=== PATIENT | female | born 1995 | race Caucasian/White ===

== ENCOUNTER 2017-03-31 16:56 | Inpatient (IN) | payer BC ==
[~2017-03-31] VITALS: Ht 160 cm; Wt 65.8 kg
[2017-03-31 17:15] VITALS: BP 111/90
--- NOTE | 2017-03-31 17:29 | Emergency Room Report ---
History of Present Illness General Chief Complaint: Abdominal Pain Source: Patient (Ed Stephen M.D.) Present Illness HPI The patient presents with abdominal pain that's been intermittent for 7-10 days. It's more in the periumbilical area and sometimes radiates up to the left upper quadrant. The pain was severe last night at 8./10. She was given Zofran and Bentyl at urgent care. That hasn't helped. She took Tylenol initially and this was unable to control pain. She denies having fevers. She's been vomiting bile recently. She's had loose stools which are brown in color. In September she passed out was evaluated at [facility]. EKG and what sounds like an MRI were done. She was told nothing was wrong. She still has intermittent dizziness. A month after being evaluated there she passed some blood in her stool. She has a picture which looks hemorrhoidal BRB. She has an implant. No URI sy, cough, dyspnea. No rashes. She's had some depression. (Ed Stephen M.D.) Allergies: Coded Allergies: No Known Allergies (Unverified , 03/31/17) Patient History Past Medical History: see triage record Pertinent Family History: other - Crohn's Social History: Reports: smoking Social History Narrative brought by [email or web address] Last Menstrual Period: 03/31/17 Now: No Reviewed Nursing Documentation: PMH: Agreed, PSxH: Agreed (Ed Stephen M.D.) Review of Systems All Other Systems: negative except mentioned in HPI (Ed Stephen M.D.) Physical Exam Vital Signs Date Time Temp Pulse Resp B/P (MAP) Pulse Ox O2 Delivery O2 Flow Rate FiO2 03/31/17 17:04 99.1 74 15 102/66 100 Sp02 EP Interpretation: reviewed, normal General Appearance: well appearing, no apparent distress, GCS 15 Head: normocephalic Eyes: bilateral eye normal inspection, bilateral eye PERRL ENT: moist mucus membranes Neck: supple Respiratory: lungs clear, normal breath sounds Cardiovascular #1: regular rate, rhythm Cardiovascular #2: 2+ radial (R) Gastrointestinal: normal inspection, normal bowel sounds, no mass, non- distended, no guarding, no rebound, tenderness - RLQ, some periumbilical pain, scaphoid Musculoskeletal: back normal, gait/station normal, normal range of motion Neurologic: alert, oriented x3, grossly normal Psychiatric: mood/affect normal Skin: normal inspection, warm/dry (Ed Stephen M.D.) Medical Decision Making Diagnostic Impression: Primary Impression: Abdominal pain Qualified Codes: R10.84 - Generalized abdominal pain Additional Impression: Acalculous cholecystitis ER Course The patient presents with abdominal pain for 7-10 days. We're her exam is most tender is the right lower quadrant. Differential includes appendicitis, ovarian torsion, ovarian cyst amongst others. Evaluation will be with labs appear to be treated IV hydration Zofran and Toradol. This does not control the pain morphine will be used. In addition to that a CT of the abdomen with by mouth and IV contrast will be obtained. In addition to that because of the possibility of ovarian pathology on pelvic ultrasound will be obtained. Ultrasound without ovarian pathology. Awaiting CT. Still with pain after fentanyl 75 mg. Will give dilaudid. Improved after dilaudid. Discussed consideration for colitis. Signed out to Dr. Gupta for review of CT. Laboratory Tests Test 03/31/17 17:20 03/31/17 17:30 Urine Color Pale yellow Urine Appearance Clear Urine pH 6.5 (4.5-8.0) Urine Specific Anderson 1.010 (1.005-1.035) Urine Protein Negative (NEGATIVE) Urine Glucose (UA) Negative (NEGATIVE) Urine Ketones Negative (NEGATIVE) Urine Occult Blood 1+ (NEGATIVE) H Urine Nitrite Negative (NEGATIVE) Urine Bilirubin Negative (NEGATIVE) Urine Urobilinogen Normal MG/DL (0.0-1.0) Urine Leukocyte Esterase Negative (NEGATIVE) Urine RBC 0-2 /HPF (0 - 2) Urine WBC 0-2 /HPF (0 - 2) Urine Squamous Epithelial Cells Occasional /LPF Urine Bacteria Occasional /HPF (NONE) Urine HCG, Qualitative Negative White Blood Count 8.9 K/UL (4.8-10.8) Red Blood Count 4.42 M/UL (4.20-5.40) Hemoglobin 14.3 G/DL (12.0-16.0) Hematocrit 40.3 % (37.0-47.0) Mean Corpuscular Volume 91 FL (80-99) Mean Corpuscular Hemoglobin 32.2 PG (27.0-31.0) H Mean Corpuscular Hemoglobin Concent 35.4 G/DL (32.0-36.0) Red Cell Distribution Width 11.0 % (11.6-14.8) L Platelet Count 238 K/UL (150-450) Mean Platelet Volume 8.3 FL (6.5-10.1) Neutrophils (%) (Auto) 58.0 % (45.0-75.0) Lymphocytes (%) (Auto) 35.3 % (20.0-45.0) Monocytes (%) (Auto) 4.8 % (1.0-10.0) Eosinophils (%) (Auto) 0.6 % (0.0-3.0) Basophils (%) (Auto) 1.3 % (0.0-2.0) Sodium Level 138 mEQ/L (135-145) Potassium Level 4.2 mEQ/L (3.4-4.9) Chloride Level 100 mEQ/L (98-107) Carbon Dioxide Level 26 mEQ/L (20-30) Anion Gap 12 (5-15) Blood Urea Nitrogen 9 mg/dL (7-23) Creatinine 0.9 mg/dL (0.5-0.9) Estimate Glomerular Filtration Rate > 60 mL/min (>60) Glucose Level 85 mg/dL (74-106) Calcium Level 9.5 mg/dL (8.6-10.2) Total Bilirubin 0.3 mg/dL (0.0-1.2) Aspartate Amino Transferase (AST) 13 U/L (5-40) Alanine Aminotransferase (ALT) 9 U/L (3-33) Alkaline Phosphatase 98 U/L (35-104) Total Protein 7.7 g/dL (6.6-8.7) Albumin 5.1 g/dL (3.5-5.2) Globulin 2.6 g/dL Albumin/Globulin Ratio 1.9 (1.0-2.7) Lipase 18 U/L (< 60) (Ed Stephen M.D.) ER Course Patient was endorsed to me by Dr. Stephen. The patient was pending CT evaluation which was performed at [facility]. The CT was notable for gallbladder without evidence of calcified gallstones or significant wall thickening however there was paracholecystic fluid. There is nonspecific periportal edema and pancreas is unremarkable. There is no evidence of bowel obstruction. The patient was noted to have have been on her menses.Dr. Luiz Lakhani was contacted for inpatient management. Dr. Rojas was contacted for surgical consultation. Labs Test 03/31/17 17:20 03/31/17 17:30 Urine Color Pale yellow Urine Appearance Clear Urine pH 6.5 (4.5-8.0) Urine Specific Anderson 1.010 (1.005-1.035) Urine Protein Negative (NEGATIVE) Urine Glucose (UA) Negative (NEGATIVE) Urine Ketones Negative (NEGATIVE) Urine Occult Blood 1+ (NEGATIVE) Urine Nitrite Negative (NEGATIVE) Urine Bilirubin Negative (NEGATIVE) Urine Urobilinogen Normal MG/DL (0.0-1.0) Urine Leukocyte Esterase Negative (NEGATIVE) Urine RBC 0-2 /HPF (0 - 2) Urine WBC 0-2 /HPF (0 - 2) Urine Squamous Epithelial Cells Occasional /LPF Urine Bacteria Occasional /HPF (NONE) Urine HCG, Qualitative Negative White Blood Count 8.9 K/UL (4.8-10.8) Red Blood Count 4.42 M/UL (4.20-5.40) Hemoglobin 14.3 G/DL (12.0-16.0) Hematocrit 40.3 % (37.0-47.0) Mean Corpuscular Volume 91 FL (80-99) Mean Corpuscular Hemoglobin 32.2 PG (27.0-31.0) Mean Corpuscular Hemoglobin Concent 35.4 G/DL (32.0-36.0) Red Cell Distribution Width 11.0 % (11.6-14.8) Platelet Count 238 K/UL (150-450) Mean Platelet Volume 8.3 FL (6.5-10.1) Neutrophils (%) (Auto) 58.0 % (45.0-75.0) Lymphocytes (%) (Auto) 35.3 % (20.0-45.0) Monocytes (%) (Auto) 4.8 % (1.0-10.0) Eosinophils (%) (Auto) 0.6 % (0.0-3.0) Basophils (%) (Auto) 1.3 % (0.0-2.0) Sodium Level 138 mEQ/L (135-145) Potassium Level 4.2 mEQ/L (3.4-4.9) Chloride Level 100 mEQ/L (98-107) Carbon Dioxide Level 26 mEQ/L (20-30) Anion Gap 12 (5-15) Blood Urea Nitrogen 9 mg/dL (7-23) Creatinine 0.9 mg/dL (0.5-0.9) Estimat Glomerular Filtration Rate > 60 mL/min (>60) Glucose Level 85 mg/dL (74-106) Calcium Level 9.5 mg/dL (8.6-10.2) Total Bilirubin 0.3 mg/dL (0.0-1.2) Aspartate Amino Transf (AST/SGOT) 13 U/L (5-40) Alanine Aminotransferase (ALT/SGPT) 9 U/L (3-33) Alkaline Phosphatase 98 U/L (35-104) Total Protein 7.7 g/dL (6.6-8.7) Albumin 5.1 g/dL (3.5-5.2) Globulin 2.6 g/dL Albumin/Globulin Ratio 1.9 (1.0-2.7) Lipase 18 U/L (< 60) (Jamil Gupta) Status: improved (Ed Stephen M.D.) Status: unchanged (Jamil Gupta) Disposition: ADMITTED INPATIENT Condition: Serious Ed Stephen M.D. Mar 31, 2017 17:29 Jamil Gupta Apr 01, 2017 02:10
[2017-03-31] MEDS ORDERED: Ketorolac 30mg Inj IV ONE (17:30)
[2017-03-31 18:06] LABS: BASOPHILS % (AUTO) 1.3 % (0.0-2.0); EOSINOPHILS % (AUTO) 0.6 % (0.0-3.0); LYMPHOCYTES % (AUTO) 35.3 % (20.0-45.0); MEAN CORPUSCULAR HEMOGLOBIN 32.2 PG (27.0-31.0); MEAN CORPUSCULAR HGB CONC 35.4 G/DL (32.0-36.0); MEAN CORPUSCULAR VOLUME 91 FL (80-99); MEAN PLATELET VOLUME 8.3 FL (6.5-10.1); MONOCYTES % (AUTO) 4.8 % (1.0-10.0); PLATELET COUNT 238 K/UL (150-450); RED BLOOD COUNT 4.42 M/UL (4.20-5.40); WHITE BLOOD COUNT 8.9 K/UL (4.8-10.8)
[2017-03-31 18:08] LABS: ALANINE AMINOTRANSFERASE 9 U/L (3-33); ALBUMIN/GLOBULIN RATIO 1.9 (1.0-2.7); ANION GAP 12 (5-15); ASPARTATE AMINO TRANSFERASE 13 U/L (5-40); CALCIUM 9.5 mg/dL (8.6-10.2); CARBON DIOXIDE 26 mEQ/L (20-30); CHLORIDE 100 mEQ/L (98-107); CREATININE 0.9 mg/dL (0.5-0.9); GLOMERULAR FILTRATION RATE > 60 mL/min (>60); HEMOLYSIS 6; LIPASE 18 U/L (< 60); POTASSIUM 4.2 mEQ/L (3.4-4.9); SODIUM 138 mEQ/L (135-145); TOTAL PROTEIN 7.7 g/dL (6.6-8.7)
[2017-03-31 18:08] LABS: APPEARANCE,URINE CLEAR; KETONES,URINE NEGATIVE (NEGATIVE); LEUKOCYTE ESTERASE ,URINE NEGATIVE (NEGATIVE); NITRITE,URINE NEGATIVE (NEGATIVE); PH,URINE 6.5 (4.5-8.0); PROTEIN,URINE NEGATIVE (NEGATIVE); UROBILINOGEN,URINE NORMAL MG/DL (0.0-1.0)
[2017-03-31 18:17] LABS: RBC,URINE 0-2 /HPF (0 - 2); WBC,URINE 0-2 /HPF (0 - 2)
[2017-03-31 18:18] LABS: BACTERIA,URINE OCCASIONAL /HPF; SQUAMOUS EPITHELIAL CELL,UR OCCASIONAL /LPF (NONE/OCC)
[2017-03-31] MEDS ORDERED: fentaNYL 100 mcg/2 mL IV ONE ×2 (19:00→20:45)
[2017-03-31 19:30] VITALS: BP 101/72
[2017-03-31] MEDS ORDERED: Hydromorphone 0.5mg/0.5ml inj IVP ONE (22:15)
[2017-03-31] MEDS ORDERED: TRAMADOL HCL50 MG ORAL (22:42)
[2017-04-01] MEDS ORDERED: Dicyclomine HCl 10mg/5ml oral soln ORAL ONE (01:30)
[2017-04-01] MEDS ORDERED: D5 1/2NS w/KCl 20mEq 1,000 ML IV SCH (02:15)
[2017-04-01] MEDS ORDERED: Ampicillin/Sulbactam Sod 3 GM in NS 110 ML IVPB ONE (02:15)
[2017-04-01 02:20] VITALS: BP 100/65
[2017-04-01] MEDS ORDERED: Unasyn 3gm Inj ONE (02:26)
[2017-04-01] MEDS ORDERED: BUPROPION XL300 MG ORAL (03:40)
[2017-04-01] MEDS ORDERED: ATARAX25 MG ORAL (03:40)
[2017-04-01] MEDS ORDERED: Mylanta II UD 30ml ORAL PRN (03:45)
[2017-04-01] MEDS ORDERED: Morphine Sulfate 4mg/ml Inj IVP PRN (03:45)
[2017-04-01] MEDS ORDERED: Milk of Magnesia 30ml Ud ORAL PRN (03:45)
[2017-04-01] MEDS ORDERED: Zolpidem 5mg tab ORAL PRN (03:45)
[2017-04-01 04:00] VITALS: BP 101/54
[2017-04-01 04:01] LABS: INR 1.2 (0.9-1.1); PROTHROMBIN TIME 11.9 SEC (9.30-11.50)
[2017-04-01] MEDS: D5 1/2NS 1,000 ML IV SCH ×3 (04:37→21:01)
[2017-04-01 08:00] VITALS: BP 95/49
[2017-04-01] MEDS: Piperacillin/Tazobactam 3.375 GM in D5W 110 ML IVPB SCH ×3 (09:50→22:57)
[2017-04-01 12:00] VITALS: BP 91/51
[2017-04-01] MEDS: Morphine Sulfate 2mg/ml Inj IVP PRN ×2 (12:43→18:33)
--- NOTE | 2017-04-01 13:00 | History & Physical ---
History and Physical History & Physicial HP dictated # [id number] NERIS GEORGE Apr 01, 2017 13:00
[2017-04-01 16:00] VITALS: BP 93/51
[2017-04-01] MEDS ORDERED: D5 1/2NS 1000ml IV ONE (18:18)
[2017-04-01 20:00] VITALS: BP 102/65
[2017-04-01] MEDS: Hydromorphone 0.5mg/0.5ml inj IVP PRN (22:00)
[2017-04-02] VITALS: BP 92/55
--- NOTE | 2017-04-02 01:00 | Consultation ---
DATE OF CONSULTATION: 04/01/2017 CONSULTING PHYSICIAN: Bull Rojas M.D. ATTENDING PHYSICIAN: Luiz Lakhani M.D. REQUESTING PHYSICIAN: Luiz Lakhani M.D. REASON FOR CONSULTATION: Abdominal pain. HISTORY OF PRESENT ILLNESS: This is a 21-year-old female who presented to emergency room complaining of abdominal pain for about a week. The pain is located at the lower abdomen with radiation to the right upper quadrant. This pain has been associated with mild nausea. She claims that she has vomited once. She stated that she has been having diarrhea, which is watery and loose, but no mucus or blood, but she claimed that she has not had any bowel movement for 2 to 3 days. The pain apparently is steady and gets aggravated with bowel movement, eating, and standing. She denies any previous history. She denies any fever, cough, dysuria, or frequency. Her period has started today. She denies any dyspareunia or vaginal discharge. PAST MEDICAL HISTORY: She denies allergies, asthma, diabetes, hypertension, cardiac or renal diseases. PAST SURGICAL HISTORY: T and A, and rhinoplasty. MEDICATIONS: None. 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 REVIEW OF SYSTEMS: Noncontributory. PHYSICAL EXAMINATION: GENERAL: The patient appeared to be a well-developed, well-nourished, 21-year-old female, in no acute distress, lying on the bed complaining of abdominal pain. HEENT: Head is normocephalic and atraumatic. Eyes, pupils are equal, round, and reactive to light. Mouth is clear. NECK: There is no palpable thyromegaly or adenopathy. CHEST: Clear to auscultation and percussion. HEART: There is no gallop or murmur. S1 and S2 are within normal limits. ABDOMEN: Soft and flat with tenderness allover, which seems to be more pronounced at the lower abdomen, mainly on the right lower quadrant, may be even on the right upper quadrant. There is no palpable organomegaly. Bowel sounds are audible. GENITAL: She is free of hernia. EXTREMITIES: Within normal limits. LABORATORY AND DIAGNOSTIC DATA: CBC is absolutely normal. Chemistry is absolutely normal. Urine is normal. CAT scan of the abdomen, I do not have the report, but she has had a CAT scan and the emergency room physician quoted me that there was edema at the area of the gallbladder, but no stone. ASSESSMENT: Abdominal pain, etiology unknown. RECOMMENDATION: At this time, she requires an ultrasound of the abdomen and a GI consultation. Bull Rojas M.D. DR: Keli JOB#: [id number] CC:
[2017-04-02] MEDS: Hydromorphone 0.5mg/0.5ml inj IVP PRN ×2 (01:16→08:46)
--- NOTE | 2017-04-02 03:30 | History and Physical Report ---
DATE OF ADMISSION: 04/01/2017 CHIEF COMPLAINT: Abdominal pain. HISTORY OF PRESENT ILLNESS: This is a pleasant 21-year-old white female, who was in her usual state of health about a week ago when she started having abdominal pain. This has been waxing and waning, however yesterday, the pain was very severe so she came to the emergency room. She describes the pain as diffuse. It is not related to eating. She noticed some blood a couple of months ago in the stool, but she had not noticed any now. Also, she states that her stools have been loose, although not watery. She had also been vomiting. PAST MEDICAL HISTORY: No previous history of GI problems. Reportedly, there is history of syncope with negative workup. She has had intermittent dizziness. SOCIAL HISTORY: The patient has history of smoking, but no history of alcohol abuse. 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 ALLERGIES: No known drug allergy. REVIEW OF SYSTEMS: As above. PHYSICAL EXAMINATION: GENERAL: The patient is a thin female, in no acute distress. VITAL SIGNS: Blood pressure is 91/51, pulse 57, temperature 97.3, and respiratory rate 20. HEENT: Nebo conjunctivae. Anicteric sclerae. NECK: Supple. LUNGS: Clear to auscultation. HEART: S1 and S2 without murmurs or rubs. Abdomen is diffusely tender. EXTREMITIES: No cyanosis or edema. LABORATORY FINDINGS: CBC shows a WBC of 8.9, hematocrit 40.3, hemoglobin 14.3, and platelets 238,000. Chemistry panel shows a serum sodium of 138, potassium 4.2, chloride 100, BUN 9, creatinine 0.9, and albumin 5.1. UA is negative. ASSESSMENT: This is a 21-year-old female, who is admitted with nausea, vomiting, some loose stools, and severe abdominal pain. She had a CT scan, which showed no evidence of calcific gallstones or wall thickening; however, there was pericholecystic fluid, there was nonspecific portal edema, and the pancreas was unremarkable. It is doubtful that the patient has acute cholecystitis because the symptoms do not match with the CAT scan results. It appears the patient has gastroenteritis, either infectious cause or possibly inflammatory bowel disease. PLAN: The patient will be on pain medications, clear liquid diet, and IV fluids. Gastrointestinal consultation was obtained. The patient was seen by Dr. Rojas in surgical consultation and does not appear to have a surgical abdomen. The patient will likely need to have colonoscopy to rule out inflammatory bowel disease. Luiz Lakhani M.D. DR: Donna JOB#: [id number] CC:
[2017-04-02 04:00] VITALS: BP 117/56
[2017-04-02] MEDS: D5 1/2NS 1,000 ML IV SCH ×3 (04:31→20:31)
[2017-04-02 07:18] LABS: BASOPHILS % (AUTO) 1.7 % (0.0-2.0); EOSINOPHILS % (AUTO) 2.2 % (0.0-3.0); LYMPHOCYTES % (AUTO) 43.1 % (20.0-45.0); MEAN CORPUSCULAR HEMOGLOBIN 33.4 PG (27.0-31.0); MEAN CORPUSCULAR HGB CONC 35.7 G/DL (32.0-36.0); MEAN CORPUSCULAR VOLUME 93 FL (80-99); MEAN PLATELET VOLUME 8.8 FL (6.5-10.1); MONOCYTES % (AUTO) 7.3 % (1.0-10.0); NEUTROPHILS % (AUTO) 45.8 % (45.0-75.0); PLATELET COUNT 179 K/UL (150-450); RED BLOOD COUNT 3.66 M/UL (4.20-5.40); RED CELL DISTRIBUTION WIDTH 10.8 % (11.6-14.8); WHITE BLOOD COUNT 6.1 K/UL (4.8-10.8)
[2017-04-02 07:23] LABS: ALANINE AMINOTRANSFERASE 7 U/L (3-33); ANION GAP 9 (5-15); ASPARTATE AMINO TRANSFERASE 10 U/L (5-40); CALCIUM 8.9 mg/dL (8.6-10.2); CARBON DIOXIDE 26 mEQ/L (20-30); CHLORIDE 107 mEQ/L (98-107); CHOLESTEROL 126 mg/dL (< 200); CHOLESTEROL/HDL RATIO 3.3 (3.3-4.4); CREATININE 0.9 mg/dL (0.5-0.9); GLOMERULAR FILTRATION RATE > 60 mL/min (>60); HEMOLYSIS 7; LDL CHOLESTEROL (CALC.) 75 mg/dL (60-99); POTASSIUM 3.9 mEQ/L (3.4-4.9); SODIUM 142 mEQ/L (135-145)
[2017-04-02 07:47] LABS: HEMOGLOBIN A1C 4.7 % (< 6.0)
[2017-04-02 08:15] VITALS: BP 109/64
[2017-04-02] MEDS: Piperacillin/Tazobactam 3.375 GM in D5W 110 ML IVPB SCH ×2 (08:46→17:28)
[2017-04-02] MEDS ORDERED: Tubing IV Secondary IV ONE (10:19)
[2017-04-02] MEDS ORDERED: D5 1/2NS 1000ml IV ONE (10:19)
--- NOTE | 2017-04-02 11:51 | General Progress Note ---
Assessment/Plan Assessment/Plan Assessment - N/V, Diarrhea and abd pain x 1 week - Chronic diarrhea - FH of IBD Rec - stool cultures - EGD/Colon Tues - check blood tests Subjective Allergies: Coded Allergies: No Known Allergies (Unverified , 03/31/17) Objective Last 24 Hour Vital Signs Date Time Temp Pulse Resp B/P (MAP) Pulse Ox O2 Delivery O2 Flow Rate FiO2 04/02/17 08:15 98.6 78 22 109/64 97 Room Air 04/02/17 04:00 97.9 60 20 117/56 99 Room Air 04/02/17 01:46 97.1 04/02/17 00:00 97.1 60 18 92/55 98 Room Air 04/01/17 20:36 98.1 04/01/17 20:00 98.1 65 18 102/65 97 Room Air 04/01/17 16:00 97.3 62 20 93/51 99 Room Air 04/01/17 12:00 97.3 57 20 91/51 98 Room Air Intake and Output 04/02/17 04/03/17 19:00 07:00 # Bowel Movements 1 Laboratory Tests 04/02/17 06:30: White Blood Count 6.1, Red Blood Count 3.66L, Hemoglobin 12.2, Hematocrit 34.2L , Mean Corpuscular Volume 93, Mean Corpuscular Hemoglobin 33.4H, Mean Corpuscular Hemoglobin Concent 35.7, Red Cell Distribution Width 10.8L, Platelet Count 179, Mean Platelet Volume 8.8, Neutrophils (%) (Auto) 45.8, Lymphocytes (%) (Auto) 43.1, Monocytes (%) (Auto) 7.3, Eosinophils (%) (Auto) 2.2, Basophils (%) (Auto) 1.7, Sodium Level 142, Potassium Level 3.9, Chloride Level 107, Carbon Dioxide Level 26, Anion Gap 9, Blood Urea Nitrogen 3L, Creatinine 0.9, Estimat Glomerular Filtration Rate > 60, Glucose Level 95, Hemoglobin A1c 4.7, Calcium Level 8.9, Magnesium Level 2.0, Total Bilirubin 0.4 , Aspartate Amino Transf (AST/SGOT) 10, Alanine Aminotransferase (ALT/SGPT) 7, Alkaline Phosphatase 66, Total Protein 6.0L, Albumin 4.0, Globulin 2.0, Albumin/ Globulin Ratio 2.0, Triglycerides Level 65, Cholesterol Level 126, LDL Cholesterol 75, HDL Cholesterol 38, Cholesterol/HDL Ratio 3.3 Height (Feet): 5 Height (Inches): 4.00 Weight (Pounds): 145 SINA MELENDREZ Apr 02, 2017 11:51
[2017-04-02] MEDS: HYDROmorphone 1mg/ml Carpuject IVP PRN (11:57)
[2017-04-02 12:15] VITALS: BP 117/67
--- NOTE | 2017-04-02 12:36 | General Progress Note ---
Assessment/Plan Problem List: (1) Abdominal pain ICD Codes: R10.9 - Unspecified abdominal pain SNOMED: 03603829 Qualifiers: Qualified Codes: R10.84 - Generalized abdominal pain (2) Acute gastroenteritis ICD Codes: K52.9 - Noninfective gastroenteritis and colitis, unspecified SNOMED: 05596632 Assessment/Plan IVF liquid diet Pain meds Await endoscopy Subjective Allergies: Coded Allergies: No Known Allergies (Unverified , 03/31/17) Subjective Better with pain meds Objective Last 24 Hour Vital Signs Date Time Temp Pulse Resp B/P (MAP) Pulse Ox O2 Delivery O2 Flow Rate FiO2 04/02/17 12:15 97.9 76 21 117/67 95 Room Air 04/02/17 08:15 98.6 78 22 109/64 97 Room Air 04/02/17 04:00 97.9 60 20 117/56 99 Room Air 04/02/17 01:46 97.1 04/02/17 00:00 97.1 60 18 92/55 98 Room Air 04/01/17 20:36 98.1 04/01/17 20:00 98.1 65 18 102/65 97 Room Air 04/01/17 16:00 97.3 62 20 93/51 99 Room Air Intake and Output 04/02/17 04/03/17 19:00 07:00 # Bowel Movements 1 Laboratory Tests 04/02/17 06:30: White Blood Count 6.1, Red Blood Count 3.66L, Hemoglobin 12.2, Hematocrit 34.2L , Mean Corpuscular Volume 93, Mean Corpuscular Hemoglobin 33.4H, Mean Corpuscular Hemoglobin Concent 35.7, Red Cell Distribution Width 10.8L, Platelet Count 179, Mean Platelet Volume 8.8, Neutrophils (%) (Auto) 45.8, Lymphocytes (%) (Auto) 43.1, Monocytes (%) (Auto) 7.3, Eosinophils (%) (Auto) 2.2, Basophils (%) (Auto) 1.7, Sodium Level 142, Potassium Level 3.9, Chloride Level 107, Carbon Dioxide Level 26, Anion Gap 9, Blood Urea Nitrogen 3L, Creatinine 0.9, Estimat Glomerular Filtration Rate > 60, Glucose Level 95, Hemoglobin A1c 4.7, Calcium Level 8.9, Magnesium Level 2.0, Total Bilirubin 0.4 , Aspartate Amino Transf (AST/SGOT) 10, Alanine Aminotransferase (ALT/SGPT) 7, Alkaline Phosphatase 66, Total Protein 6.0L, Albumin 4.0, Globulin 2.0, Albumin/ Globulin Ratio 2.0, Triglycerides Level 65, Cholesterol Level 126, LDL Cholesterol 75, HDL Cholesterol 38, Cholesterol/HDL Ratio 3.3 Height (Feet): 5 Height (Inches): 4.00 Weight (Pounds): 145 Cardiovascular: normal rate Respiratory/Chest: lungs clear Abdomen: soft, tender - less NERIS GEORGE Apr 02, 2017 12:36
[2017-04-02] MEDS ORDERED: Nulytely 4L ORAL ONE (13:00)
[2017-04-02] MEDS: Metoclopramide 10mg/2ml Inj IVP PRN ×2 (13:34→20:50)
--- NOTE | 2017-04-02 14:55 | Diagnostic Imaging Report ---
Indication:Lower abdominal and pelvic pain Technique: Grayscale and duplex Doppler imaging of the pelvis performed utilizing a transabdominal scan only. Comparison: None Findings: Uterus and both ovaries are unremarkable on this examination. Uterus is 5.6 x 4.2 x 2.2 CM. Both ovaries are demonstrated and show no abnormalities. Doppler evidence of blood flow noted within both ovaries. Impression: Negative pelvic ultrasound Note: Significant abnormalities may be missed due to omission of the endovaginal scan, which is always recommended for proper evaluation of the gynecological structures unless there is a compelling reason not to do so. The decision not to perform endovaginal scan was per ordering physician.
[2017-04-02 16:15] VITALS: BP 106/59
[2017-04-02 20:00] VITALS: BP 102/53
[2017-04-03] VITALS (11 sets, daily range): BP systolic 88–124; BP diastolic 53–69
[2017-04-03] MEDS ORDERED: Magnesium Citrate Liq Btl ORAL ONE (02:00)
[2017-04-03] MEDS: Piperacillin/Tazobactam 3.375 GM in D5W 110 ML IVPB SCH ×3 (02:50→16:18)
[2017-04-03] MEDS: D5 1/2NS 1,000 ML IV SCH ×3 (04:31→20:08)
[2017-04-03 06:56] LABS: CRP QUANT < 0.3 mg/dL (< 0.5)
[2017-04-03 07:00] LABS: FERRITIN 128 ng/mL (13-150)
[2017-04-03] MEDS: Hydromorphone 0.5mg/0.5ml inj IVP PRN ×4 (07:20→22:04)
--- NOTE | 2017-04-03 07:30 | Consultation ---
DATE OF CONSULTATION: 04/02/2017 GASTROENTEROLOGY CONSULTATION REPORT CHIEF COMPLAINT: I was asked to see this patient by Dr. Luiz Lakhani for evaluation of abdominal pain. HISTORY OF PRESENT ILLNESS: The patient is a pleasant 21-year-old white woman, who came to the hospital due to a one-week history of diarrhea, which is 5 times a day. She also has had some nausea and vomiting. She has had no real contacts and no recent trips. The patient has been hospitalized with reduced nausea and vomiting. She has not had a bowel movement, but she has had some pain medications. On further questioning, however, it appeared that the patient has had a more long-term history of diarrhea and also family history of Crohn's disease. The patient says that normally about 3 or 4 days out of the week, she has diarrhea a few times a day. She had blood in her stools for 1-week period as exception. She has no nighttime stools, but she does have urgency. She has not had endoscopy or colonoscopy. PAST MEDICAL HISTORY: The patient has anxiety disorder, which shows that she is on medications for it. FAMILY HISTORY: Positive for pancreatic cancer in the paternal grandfather and diabetes in the father. There is Crohn disease in the grandmother's brother and 2 of her cousin's children. The patient's mother had a cholecystectomy. PAST SURGICAL HISTORY: Status post tonsillectomy and adenoidectomy and status post rhinoplasty. MEDICATIONS: Wellbutrin 300 mg by mouth daily and hydroxyzine 75 mg by mouth twice a day. ALLERGIES: None. REVIEW OF SYSTEMS: Otherwise negative. SOCIAL HISTORY: The patient is single, but has a boyfriend. She does not smoke or drink. PHYSICAL EXAMINATION: GENERAL: Pleasant white woman, seen in the room. HEENT: Normocephalic and atraumatic. Sclerae anicteric. Oropharynx clear. NECK: Supple. CHEST: Clear to auscultation. CARDIOVASCULAR: Regular rate. ABDOMEN: Soft. Nontender to palpation diffusely, but more so on the right side of the abdomen without significant guarding or rebound. EXTREMITIES: Revealed no edema. LABORATORY DATA: Noted. ASSESSMENT: This patient presents with a long-term history of weekly diarrhea, which is about the expected amount. The patient has a family history of inflammatory bowel disease, which being a possibility. The patient requests to expedite workup as she does not want to wait for stool cultures or to come and see me as an outpatient. I have therefore offered a video endoscopy and colonoscopy to evaluate the mucosa of the GI tract for faster diagnosis. RECOMMENDATIONS: I want to check all stool cultures and proceed with endoscopy and colonoscopy tomorrow. I am going to check blood tests. The above was all discussed with the patient and her mother and all of their questions were answered. Thank you for asking me to participate in the care of this patient. Lynn Rene M.D. DR: VIK JOB#: [id number] CC: KELSEY
[2017-04-03 07:52] LABS: IRON 94 ug/dL (37-145)
--- NOTE | 2017-04-03 12:56 | General Progress Note ---
Assessment/Plan Problem List: (1) Abdominal pain ICD Codes: R10.9 - Unspecified abdominal pain SNOMED: 68561858 Qualifiers: Qualified Codes: R10.84 - Generalized abdominal pain (2) Acute gastroenteritis ICD Codes: K52.9 - Noninfective gastroenteritis and colitis, unspecified SNOMED: [id number] Assessment/Plan IVF Pain meds Await endoscopy Subjective Allergies: Coded Allergies: No Known Allergies (Unverified , 03/31/17) Subjective In NAD Objective Last 24 Hour Vital Signs Date Time Temp Pulse Resp B/P (MAP) Pulse Ox O2 Delivery O2 Flow Rate FiO2 04/03/17 11:59 98.2 63 21 124/65 95 Room Air 04/03/17 08:13 97.3 80 21 103/53 97 Room Air 04/03/17 04:00 98.0 70 18 109/57 98 Room Air 04/03/17 00:00 98.1 74 20 108/59 98 Room Air 04/02/17 20:00 98.2 69 20 102/53 98 Room Air 04/02/17 16:15 98.1 68 21 106/59 95 Room Air Intake and Output 04/03/17 04/04/17 19:00 07:00 Intake Total 55.0 ml Balance 55.0 ml IV Total 55.0 ml Laboratory Tests 04/02/17 19:00: Stool Occult Blood Negative 04/03/17 04:45: Erythrocyte Sedimentation Rate 13, Iron Level 94, Ferritin 128, C-Reactive Protein, Quantitative < 0.3, Vitamin B12 Level 285 Height (Feet): 5 Height (Inches): 3.00 Weight (Pounds): 145 Cardiovascular: normal rate Respiratory/Chest: lungs clear, normal breath sounds Abdomen: soft NERIS GEORGE Apr 03, 2017 12:56
[2017-04-03] MEDS ORDERED: NS 550ML IV ONE (13:21)
[2017-04-03] MEDS ORDERED: fentaNYL 100 mcg/2 mL IV ONE (13:30)
[2017-04-03] MEDS ORDERED: Midazolam 2mg/2ml Inj ONE (13:30)
[2017-04-03] MEDS ORDERED: Propofol 10mg/ml 20ml IV ONE (13:30)
[2017-04-03] MEDS ORDERED: LR 1000ml ONE (13:30)
--- NOTE | 2017-04-03 13:34 | Pre-Procedure Note/Attestation ---
Pre-Procedure Note/Attestation Complete Prior to Procedure Planned Procedure: not applicable Procedure Narrative: esophagogastroduodenoscopy colon Indications for Procedure Pre-Operative Diagnosis: abd pain Attestation I attest that I discussed the nature of the procedure; its benefits; risks and complications; and alternatives (and the risks and benefits of such alternatives ), prior to the procedure, with the patient (or the patient's legal wire rope sales representative). I attest that, if there was a reasonable possibility of needing a blood transfusion, the patient (or the patient's legal wire rope sales representative) was given the [facility] standardized written summary, pursuant to the [employer] Blood Safety Act ([place] Health and Safety Code # 1645, as amended). I attest that I re-evaluated the patient just prior to the surgery and that there has been no change in the patient's H&P, except as documented below: SINA MELENDREZ Apr 03, 2017 13:34
[2017-04-03] MEDS ORDERED: LR 1000ml 1,000 ML IVLG SCH (13:47)
--- NOTE | 2017-04-03 13:47 | Anethesia Preoperative Eval ---
Anesthesia Pre-op PMH/ROS General Date of Evaluation: Apr 03, 2017 Time of Evaluation: 13:24 Anesthesiologist: lex ASA Score: ASA 1 Mallampati Score Class I : Soft palate, uvula, fauces, pillars visible Class II: Soft palate, uvula, fauces visible Class III: Soft palate, base of uvula visible Class IV: Only hard plate visible Mallampati Classification: Class II Surgeon: Bettina Diagnosis: Abdominal pain Surgical Procedure: EGD Colonoscopy Anesthesia History: none Family History: no anesthesia problems Allergies: Coded Allergies: No Known Allergies (Unverified , 03/31/17) Medications: see eMAR Past Medical History Cardiovascular: Denies: HTN, CAD, [place], valve dz, arrhythmia, other Pulmonary: Denies: asthma, COPD, JORGE A, other Gastrointestinal/Genitourinary: Denies: GERD, CRI, ESRD, other Neurologic/Psychiatric: Denies: dementia, CVA, depression/anxiety, TIA, other Endocrine: Denies: DM, hypothyroidism, steroids, other HEENT: Denies: cataract (L), cataract (R), glaucoma, [place] (L), [place] (R), other Hematology/Immune: Denies: anemia, DVT, bleeding disorder, other Musculoskeletal/Integumentary: Denies: OA, RA, DJD, DDD, edema, other PMH Narrative: admitted for abdominal pain PSxH Narrative: T&A Anesthesia Pre-op Phys. Exam Physician Exam Last Vital Signs Date Time Temp Pulse Resp B/P (MAP) Pulse Ox O2 Delivery O2 Flow Rate FiO2 04/03/17 11:59 98.2 63 21 124/65 95 Room Air Constitutional: NAD Neurologic: CN 2-12 intact Cardiovascular: RRR, no M/R/G Respiratory: CTA Gastrointestinal: S/NT/ND Airway Exam Mallampati Score: Class II MO: full Neck: flexible ROM: full Teeth: intact Dentures: no upper, no lower Anesthesia Pre-op A/P Labs Hematology Test 04/03/17 04:45 Erythrocyte Sedimentation Rate 13 MM/HR (0-20) Chemistry Test 04/03/17 04:45 Iron Level 94 ug/dL (37-145) Ferritin 128 ng/mL (13-150) C-Reactive Protein, Quantitative < 0.3 mg/dL (< 0.5) Vitamin B12 Level 285 pg/mL (211-946) Risk Assessment & Plan Assessment: ASA 2 Plan: MAC Status Change Before Surgery: No Pre-Antibiotics Drug: none SHARITA ZAPATA M.D. Apr 03, 2017 13:47
[2017-04-03] MEDS ORDERED: DiphenhydrAMINE 50mg/ml Inj IVP PRN (14:00)
[2017-04-03] MEDS ORDERED: Meperidine 25mg/0.5ml Inj (FOR RIGORS ONLY) IV PRN (14:00)
--- NOTE | 2017-04-03 14:06 | Immediate Post-Op Evaluation ---
Immediate Post-Op Evalulation Immediate Post-Op Evalulation Procedure: EGD Colonoscopy Date of Evaluation: Apr 03, 2017 Time of Evaluation: 14:05 IV Fluids: 500 Blood Products: none Estimated Blood Loss: none Urinary Output: none Blood Pressure Systolic: 99 Blood Pressure Diastolic: 54 Pulse Rate: 67 Respiratory Rate: 20 O2 Sat by Pulse Oximetry: 99 Temperature (Fahrenheit): 97.6 Pain Score (1-10): 1 Nausea: No Vomiting: No Complications none Patient Status: awake, patent, none Hydration Status: adequate SHARITA ZAPATA M.D. Apr 03, 2017 14:06
--- NOTE | 2017-04-03 14:17 | General Progress Note ---
Assessment/Plan Assessment/Plan Assessment - N/V, Diarrhea - abd pain - Chronic diarrhea - FH of IBD Rec - stool cultures - EGD/Colon Today - check blood tests POST PROCEDURE EGD/COLONOSCOPY - NORMAL (Multiple biopsies obtained) Begin PO diet d/c planning Subjective Allergies: Coded Allergies: No Known Allergies (Unverified , 03/31/17) Subjective (++) BM with prep no BRBPR still with abd pain getting narcotics Objective Last 24 Hour Vital Signs Date Time Temp Pulse Resp B/P (MAP) Pulse Ox O2 Delivery O2 Flow Rate FiO2 04/03/17 14:06 67 20 99 04/03/17 11:59 98.2 63 21 124/65 95 Room Air 04/03/17 08:13 97.3 80 21 103/53 97 Room Air 04/03/17 04:00 98.0 70 18 109/57 98 Room Air 04/03/17 00:00 98.1 74 20 108/59 98 Room Air 04/02/17 20:00 98.2 69 20 102/53 98 Room Air 04/02/17 16:15 98.1 68 21 106/59 95 Room Air Intake and Output 04/03/17 04/04/17 19:00 07:00 Intake Total 110.0 ml Balance 110.0 ml IV Total 110.0 ml Laboratory Tests 04/02/17 19:00: Stool Occult Blood Negative 04/03/17 04:45: Erythrocyte Sedimentation Rate 13, Iron Level 94, Ferritin 128, C-Reactive Protein, Quantitative < 0.3, Vitamin B12 Level 285 Height (Feet): 5 Height (Inches): 3.00 Weight (Pounds): 145 Objective WDWN NCAT supple CTA RRR Soft ND mild (L) sided TTP no edema non focal PARVINSINA Apr 03, 2017 14:17
--- NOTE | 2017-04-03 14:21 | Endoscopy Procedure Note ---
Endoscopy Procedure Note Indication for Procedure: abd pain Procedures Performed: EGD, colonoscopy Operative Findings/Diagnosis: normal normal bx/bx TI normal Specimen: yes Pt Tolerated Procedure Well: Yes Estimated Blood Loss: none Anesthesiologist: see report Anesthesia: MAC Medication Given: see anesthesia record Implant(s) used?: No 50 yrs or older w/o bx or poly: Not Applicable 10yrs. F/U not recommended: Not Applicable If not recommended, why?: SINA MELENDREZ Apr 03, 2017 14:21
--- NOTE | 2017-04-03 14:22 | Brief Operative Note ---
Immediate Post Operative Note Operative Note Chief Complaint: abd pain Pre-op Diagnosis: abd pain Procedure: e/c bx/bx Post-op Diagnosis: normal Surgeon: sirena Anesthesiologist: see report Anesthesia: MAC Specimen: yes Complications: none Condition: stable Fluids: per ansethesia Estimated Blood Loss: none Drains: none Implant(s) used?: No SINA MELENDREZ Apr 03, 2017 14:22
--- NOTE | 2017-04-03 16:19 | 48 Hour Post Anesthesia Eval ---
Post Anesthesia Evaluation Procedure: EGD Colonoscopy Date of Evaluation: Apr 03, 2017 Time of Evaluation: 16:17 Blood Pressure Systolic: 102 0: 62 Pulse Rate: 64 Respiratory Rate: 20 Temperature (Fahrenheit): 97.6 O2 Sat by Pulse Oximetry: 99 Airway: patent Nausea: No Vomiting: No Pain Intensity: 1 Hydration Status: adequate Cardiopulmonary Status: stable Mental Status/LOC: patient returned to baseline Follow-up Care/Observations: n/a Post-Anesthesia Complications: none Follow-up care needed: N/A SHARITA ZAPATA M.D. Apr 03, 2017 16:18
[2017-04-03] MEDS: Metoclopramide 10mg/2ml Inj IVP PRN (22:14)
[2017-04-04] VITALS: BP 104/51
[2017-04-04] MEDS: Piperacillin/Tazobactam 3.375 GM in D5W 110 ML IVPB SCH ×3 (00:32→16:30)
[2017-04-04] MEDS: HYDROmorphone 1mg/ml Carpuject IVP PRN ×2 (01:18→08:44)
[2017-04-04 04:00] VITALS: BP 109/62
[2017-04-04] MEDS: D5 1/2NS 1,000 ML IV SCH ×2 (04:31→13:15)
[2017-04-04 08:15] VITALS: BP 103/55
[2017-04-04] MEDS: Metoclopramide 10mg/2ml Inj IVP PRN (08:43)
[2017-04-04 12:09] VITALS: BP 98/63
[2017-04-04] MEDS: Hydromorphone 0.5mg/0.5ml inj IVP PRN (13:15)
--- NOTE | 2017-04-04 16:27 | Consultation ---
Consult Note Assessment/Plan Dc dictated # [id number] NERIS GEORGE Apr 04, 2017 16:27
[2017-04-04] MEDS ORDERED: D5 1/2NS 1000ml IV ONE (18:32)
--- NOTE | 2017-04-04 21:05 | General Progress Note ---
Assessment/Plan Assessment/Plan Assessment - N/V, Diarrhea - abd pain - Chronic diarrhea - FH of IBD Rec - stool cultures - check blood tests POST PROCEDURE EGD/COLONOSCOPY - NORMAL (Multiple biopsies obtained) Push PO diet d/c planning Subjective Allergies: Coded Allergies: No Known Allergies (Unverified , 03/31/17) Subjective Feels OK tolerating PO d/w pt mother re findings Objective Last 24 Hour Vital Signs Date Time Temp Pulse Resp B/P (MAP) Pulse Ox O2 Delivery O2 Flow Rate FiO2 04/04/17 12:09 97.5 71 22 98/63 97 Room Air 04/04/17 08:15 97.8 68 21 103/55 97 Room Air 04/04/17 04:00 98.7 56 20 109/62 95 Room Air 04/04/17 00:00 97.7 74 16 104/51 98 Room Air Intake and Output 04/04/17 04/05/17 19:00 07:00 Intake Total 985 ml Balance 985 ml IV Total 985 ml # Voids 4 Height (Feet): 5 Height (Inches): 3.00 Weight (Pounds): 145 Objective WDWN NCAT supple CTA RRR Soft ND mild (L) sided TTP no edema non focal SINA MEELNDREZ Apr 04, 2017 21:05
--- NOTE | 2017-04-05 06:15 | Discharge Summary ---
DATE OF ADMISSION: 04/01/2017 DATE OF DISCHARGE: 04/04/2017 CHIEF COMPLAINT: Abdominal pain. HISTORY OF PRESENT ILLNESS: This is a 21-year-old female, who is admitted with abdominal pain and some vomiting. HOSPITAL COURSE: The patient was started on IV fluids and IV pain medications with clear liquid diet. She was seen by Dr. Rene. Eventually, the patient underwent upper and lower endoscopy, which were normal. The patient's symptoms meanwhile improved. She was started on regular diet. She tolerated well and she was discharged home in stable condition. DISCHARGE DIAGNOSES: Abdomen pain, nausea, and vomiting, likely acute viral gastroenteritis. DISCHARGE MEDICATIONS: Please refer to discharge medication list. Luiz Lakhani M.D. DR: Nadege JOB#: [id number] CC:
--- NOTE | 2017-04-05 23:00 | Procedure Note ---
DATE OF PROCEDURE: 04/03/2017 SURGEON: Lynn Rene M.D. PROCEDURE PERFORMED: Upper gastrointestinal endoscopy with biopsy as well as colonoscopy with biopsy. ANESTHESIA: Please see the separate anesthesiologist notes for details. PRE-ENDOSCOPIC DIAGNOSIS: Abdominal pain and suspected possible Crohn disease. POST-ENDOSCOPIC DIAGNOSIS: Normal upper and lower gastrointestinal endoscopy, status post random biopsies. DESCRIPTION OF PROCEDURE: The procedure, its risks, indications, alternatives, and possible complications were explained to the patient and informed consent was obtained. The patient was then sedated and diagnostic upper endoscope was introduced through the oropharynx and advanced to the duodenum. The endoscope was then gradually withdrawn and the mucosa examined carefully. Examination of the upper gastrointestinal mucosa revealed no abnormalities. Biopsies sent to pathology for review. The endoscope was removed. Rectal exam was done. The colonoscope was introduced in the rectum and advanced to the terminal ileum without difficulty. The terminal ileal mucosa did not show any abscess, ulcerations, or inflammation. The endoscope was then gradually withdrawn and random biopsies were sent to pathology for review. Retroflexion of the rectum was unremarkable. The colonoscope was removed. The patient was sent to recovery in good condition. COMPLICATIONS: None. ASSESSMENT: There are no visual abnormalities on this admission to explain the patient's symptoms. Biopsy should be reviewed to rule out any microscopic evidence of disease. RECOMMENDATIONS: 1. Resume oral diet. 2. Follow up biopsy results. Lynn Rene M.D. DR: Bisi JOB#: [id number] CC:
== END 2017-04-04 18:33 | disposition home or self-care (01) | DRG 392 ==
LOC: EMR 18:21 → 4E 04-01 02:12 → EDBEDREQ 04-01 02:27
PROC: 0DBN8ZX Excision of Sigmoid Colon, Via Natural or Artificial Opening Endoscopic, Diagnostic (ICD-10-PCS; principal; 2017-04-03 13:36)
PROC: 0DBM8ZX Excision of Descending Colon, Via Natural or Artificial Opening Endoscopic, Diagnostic (ICD-10-PCS; principal; 2017-04-03 13:36)
PROC: 0DBK8ZX Excision of Ascending Colon, Via Natural or Artificial Opening Endoscopic, Diagnostic (ICD-10-PCS; principal; 2017-04-03 13:36)
PROC: 0DB98ZX Excision of Duodenum, Via Natural or Artificial Opening Endoscopic, Diagnostic (ICD-10-PCS; principal; 2017-04-03 13:36)
PROC: 0DBL8ZX Excision of Transverse Colon, Via Natural or Artificial Opening Endoscopic, Diagnostic (ICD-10-PCS; principal; 2017-04-03 13:36)
PROC: 0DB68ZX Excision of Stomach, Via Natural or Artificial Opening Endoscopic, Diagnostic (ICD-10-PCS; principal; 2017-04-03 13:36)
PROC: 0DB88ZX Excision of Small Intestine, Via Natural or Artificial Opening Endoscopic, Diagnostic (ICD-10-PCS; principal; 2017-04-03 13:36)
DX: A08.4 Viral intestinal infection, unspecified (principal); F41.9 Anxiety disorder, unspecified; Z83.3 Family history of diabetes mellitus; Z80.8 Family history of malignant neoplasm of other organs or systems
CPT/HCPCS: 36415; 76856; 80053; 80061; 81003; 81025; 82270; 82607; 82728; 83036; 83540; 83690; 83735; 85025; 85610; 85651; 85730; 86140; 86850; 86900; 86901; 87045; 87324; 94003; 94150; 99285; J2250; J2405; J2765